=== PATIENT | female | born 2000 | race Caucasian/White ===

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

== ENCOUNTER 2022-02-11 00:54 | Emergency (ER) | payer OTHER, SELFPAY ==
[2022-02-11] VITALS (32 sets, daily range): BP systolic 110–134; BP diastolic 61–109; PULSE 82–115; RESP 11–27; TEMP 36.6; O2SAT 92–100
--- NOTE | ~2022-02-11 | CT_ITS ---
EXAMINATION: CT abdomen pelvis w con DATE: 02/11/2022 03:39 INDICATION: Right lower quadrant abdominal pain. Nausea and vomiting. TECHNIQUE: Computed tomography (CT) of the abdomen and pelvis was performed with 100 mL Omnipaque 350 intravenous contrast. Automated exposure control and iterative reconstruction technique were employe d. The dose-length product was 199.17 mGy-cm. COMPARISON: CT abdomen and pelvis 12/19/2020 FINDINGS: The visualized portions of the lung bases are clear without pneumonia or pleural effusion. The heart size is normal. No pericardial effusion. The liver, gallbladder, spleen, pancreas, adrenal glands, and kidneys are normal. There are no dilated loops of bowel. The appendix is normal. There ar e no pathologically enlarged lymph nodes. There is physiologic fluid in the pelvis. The bones are unr emarkable. IMPRESSION: 1. No specific etiology for the patient's symptoms. Reviewed, dictated and finalized at location B.
[2022-02-11 02:12] LABS: Basophils Percent Auto 0.3 % (0.2-1.2); Eosinophils Absolute Auto 0.2 K/mm3 (0-0.3); Eosinophils Percent Auto 2.6 % (0-4.4); Hematocrit 41.6 % (37.0-47.0); Hemoglobin 14.4 g/dL (12.0-15.0); Immature Granulocyte Absolute 0.02 K/mm3 (0.00-0.031); Immature Granulocyte Percent A 0.3 % (0-0.5); Lymphocytes Absolute Auto 1.38 K/mm3 (0.9-3.2); Lymphocytes Percent Auto 22.3 % (18.3-44.2); Mean Corpuscular HGB Conc 34.6 g/dl (32-36); Mean Corpuscular Hemoglobin 31.9 pg (26-34); Mean Platelet Volume 10.6 fl (7.4-10.4); Monocytes Absolute Auto 0.7 K/mm3 (0.1-0.6); Neutrophils Absolute Auto 3.9 K/mm3 (1.3-6.7); Neutrophils Percent Auto 63.5 % (45.5-73.1); Platelet Count Result 169 k/mm3 (150-375); Red Blood Count 4.52 M/mm3 (4.2-5.4); Red Cell Distribution Width 12.2 % (11.5-14.5); White Blood Count 6.2 K/mm3 (4.5-10.0)
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
[2022-02-11 02:24] LABS: Alanine Aminotransferase 17 U/L (6-35); Alkaline Phosphatase 53 U/L (45-116); Anion Gap 16 mmol/L (8-16); Aspartate Amino Transferase 33 U/L (14-36); Bilirubin,Total 0.6 mg/dL (0.2-1.3); Blood Urea Nitrogen 9 mg/dL (8-21); Calcium 9.6 mg/dL (8.9-10.7); Carbon Dioxide 21 mmol/L (22-30); Chloride 103 mmol/L (98-107); Estimated CRCL calculation 88 ml/min; Estimated Glomerular Filt Rate > 60; Glucose 114 mg/dL (65-110); Lipase 108 U/L (23-300); Potassium 3.5 mmol/L (3.4-5.0); Sodium 140 mmol/L (134-143)
[2022-02-11 02:54] LABS: Appearance Urine Clear (Clear); Bilirubin Urine Negative (Negative); Blood Urine Negative (Negative); Color Urine Yellow (Yellow); Glucose Urine UA Negative (Negative); Ketones Urine 2+ mg/dL (Negative); Leukocyte Esterase Ur Negative LEU/UL (Negative); Nitrate Urine Negative (Negative); Protein Urine Negative (Negative); Specific Grav Ur 1.015 (1.001-1.035); pH Urine 8.5 (5.0-9.0)
[2022-02-11 02:59] LABS: Add Urine Microscopic? YES; Bacteria Urine Trace /hpf; Mucus Urine Rare /lpf; RBC Urine 0-2 /hpf (0-2); Squamous Epithelial Cell Urine Many /hpf (Few); WBC Urine 0-3 /hpf
--- NOTE | 2022-02-11 03:06 | PC.NURSE ---
Pt continues to repeatedly remove BP cuff
--- NOTE | 2022-02-11 03:17 | PC.NURSE ---
Pt called out for medication. RN awiting MD orders and notified pt. MD in room with critical pt at this time.
[2022-02-11] MEDS: SODIUM CHLORIDE 0.9% IV 1,000 ML 999 ML IV CONT (04:02)
[2022-02-11] MEDS: ONDANSETRON INJ 4 MG/2 ML VIAL IV PUSH (04:02)
[2022-02-11] MEDS: FAMOTIDINE 20 MG/2 ML VIAL IV PUSH (04:02)
[2022-02-11] MEDS: diphenhydrAMINE HCl INJ 50 MG/ML VIAL IV PUSH (04:43)
[2022-02-11] MEDS: METOCLOPRAMIDE HCL INJ 10 MG/2 ML VIAL IV PUSH (04:44)
== END 2022-02-11 05:47 | disposition home or self-care (01) ==
PROVIDERS: Emergency Provider Emergency Medicine; PCP Pediatrics
DX: R11.2 Nausea with vomiting, unspecified (principal)
CPT/HCPCS: 36415; 74177; 80053; 81001; 81025; 83690; 85025; 96361; 96374; 96375; 99284; J1200; J2405; J2765; J7030; Q9967

== ENCOUNTER 2022-04-10 11:00 | Emergency (ER) | payer OTHER, SELFPAY ==
[2022-04-10 11:30] VITALS: BP 124/72; PULSE 64; RESP 16; TEMP 37.4; O2SAT 99
--- NOTE | 2022-04-10 12:00 | ED.DENTAL ---
HPI - Dental/Oral General Chief complaint: Dental/Oral Stated complaint: mouth pain Time Seen by Provider: 04/10/22 12:00 Mode of arrival: ambulatory Limitations: no limitations History of Present Illness HPI Narrative: 21-year-old female presents concern for right lower dental pain for several days. She reports she has an decayed tooth in that area. She reports she has a dentist appointment in May. She denies taking any medications for her symptoms. MD Complaint: tooth pain Related Data Allergies Allergy/AdvReac Type Severity Reaction Status Date / Time No Known Allergies Allergy Verified 04/10/22 11:44 Review of Systems Review of Systems: CONSTITUTIONAL: Denies malaise, chills, sweats, or fever. EYES: Denies visual changes ENT: Denies rhinorrhea, congestion, sinus pain, otalgia or sore throat. Reports left lower dental pain CARDIOVASCULAR: Denies chest pain, palpitations RESPIRATORY: Denies cough or dyspnea. SKIN: Denies rash or itching. MUSCULOSKELETAL: Denies myalgia. NEUROLOGIC: Denies numbness, weakness, or headache. All systems reviewed & are unremarkable except as noted in HPI and below PMFSH Social History Social History Gender identity (if verbalized by the patient): Female Comments At time of signature, agree with nursing past medical, surgical, social and family history. There is no relevant family history pertinent to the presenting complaint Exam Narrative: GENERAL: Well-appearing, well-nourished, and in no acute distress. HEAD: Normocephalic, atraumatic. EYES: PERRLA, sclera clear ENT: Nares clear, turbinates pink, no rhinorrhea or epistaxis. Mucous membranes moist. TM pearly douglas with sharp light reflex bilaterally; no tragal tenderness. Oropharynx without erythema or lesions. Tonsils not enlarged and without exudate. Tooth number 31 decayed, cracked without visible or palpable abscess NECK: Supple. No lymphadenopathy. CHEST: No respiratory distress. Speaks in full sentences. HEART: Regular rate and rhythm. SKIN: Warm, dry, no visible rash. NEURO: Alert and oriented x3. PSYCH: Normal mood and affect Course Course Emergency Course: Patient is aware of diagnosis, understands and agrees to treatment plan. Anticipatory guidance given. Patient agrees to follow-up as directed and is aware of reasons to seek care at the emergency department. Portions of this record may have been created with voice recognition software Level of Care: Express Care Visit Vital Signs Vital signs: Vital Signs Temperature 99.4 F 04/10/22 11:30 Pulse Rate 64 04/10/22 11:30 Respiratory Rate 16 04/10/22 11:30 Blood Pressure 124/72 04/10/22 11:30 Pulse Oximetry 99 04/10/22 11:30 Oxygen Delivery Room Air 04/10/22 11:30 Temperature 99.4 F 04/10/22 11:30 Pulse Rate 64 04/10/22 11:30 Respiratory Rate 16 04/10/22 11:30 Blood Pressure 124/72 04/10/22 11:30 Pulse Oximetry 99 04/10/22 11:30 Oxygen Delivery Room Air 04/10/22 11:30 Reviewed. MDM - Dental/Oral MDM Narrative Medical decision making narrative: Patients pain and complaint coupled with physical findings are consistant with dentalgia. There are no focal signs of space occupying lesions that are compromising to the airway; no dysphagia, odynophagia, dysphonia, or dyspnea. No uvular deviation or soft palate edema. Patient is non-toxic appearing. The floor of the mouth is soft with no signs of Maxwell's Angina; no induration below mandible, no neck pain. Patient is without trismus or drooling and able to swallow secretions. Patient is felt appropriate for discharge home with dental follow up. Differential Diagnosis Differential diagnosis: Likely gingival abscess, dental caries, toothache, dental abscess, fracture of tooth and aphthous ulcer Critical Care Time Critical Care Time Critical Care Time: No Discharge Plan Discharge Clinical Impression:
== END 2022-04-10 12:10 | disposition home or self-care (01) ==
PROVIDERS: Emergency Provider Nurse Practitioner
DX: K08.89 Other specified disorders of teeth and supporting structures (principal)
CPT/HCPCS: 99213; G0463

== ENCOUNTER 2022-04-21 18:23 | Emergency (ER) | payer OTHER, SELFPAY ==
--- NOTE | 2022-04-21 18:27 | ED.DENTAL ---
HPI - Dental/Oral General Chief complaint: Dental/Oral Stated complaint: JAW PAIN Time Seen by Provider: 04/21/22 18:33 Mode of arrival: ambulatory Limitations: no limitations History of Present Illness HPI Narrative: 21-year-old female presents concern for continued left lower dental pain/jaw pain. She reports her symptoms improved but did not resolve with the round of Augmentin. She reports cold temperatures make the pain worse. She denies fever, trouble swallowing, headache. MD Complaint: tooth pain Related Data Allergies Allergy/AdvReac Type Severity Reaction Status Date / Time No Known Allergies Allergy Verified 04/10/22 11:44 Review of Systems Review of Systems: CONSTITUTIONAL: Denies malaise, chills, sweats, or fever. EYES: Denies visual changes ENT: Denies rhinorrhea, congestion, sinus pain, otalgia or sore throat. Reports left lower dental pain CARDIOVASCULAR: Denies chest pain, palpitations RESPIRATORY: Denies cough or dyspnea. SKIN: Denies rash or itching. MUSCULOSKELETAL: Denies myalgia. NEUROLOGIC: Denies numbness, weakness, or headache. All systems reviewed & are unremarkable except as noted in HPI and below PMFSH Social History Social History Gender identity (if verbalized by the patient): Female Comments At time of signature, agree with nursing past medical, surgical, social and family history. There is no relevant family history pertinent to the presenting complaint Exam Narrative: GENERAL: Well-appearing, well-nourished, and in no acute distress. HEAD: Normocephalic, atraumatic. EYES: PERRLA, sclera clear ENT: Nares clear, turbinates pink, no rhinorrhea or epistaxis. Mucous membranes moist. TM pearly douglas with sharp light reflex bilaterally; no tragal tenderness. Oropharynx without erythema or lesions. Tonsils not enlarged and without exudate. Missing teeth, caries noted. Tenderness noted when pressing on tooth number 28, no jaw swelling noted NECK: Supple. No lymphadenopathy. CHEST: No respiratory distress. Speaks in full sentences. HEART: Regular rate and rhythm. SKIN: Warm, dry, no visible rash. NEURO: Alert and oriented x3. PSYCH: Normal mood and affect Course Course Emergency Course: Patient was advised that she needs to see her dentist as soon as possible because her pain did not resolve with the 1st round of antibiotics, will try another round of antibiotics and advised patient to try dental wax over the painful tooth. Patient is aware of diagnosis, understands and agrees to treatment plan. Anticipatory guidance given. Patient agrees to follow-up as directed and is aware of reasons to seek care at the emergency department. Portions of this record may have been created with voice recognition software Level of Care: Express Care Visit Vital Signs Vital signs: Reviewed. MDM - Dental/Oral MDM Narrative Medical decision making narrative: Patients pain and complaint coupled with physical findings are consistant with dentalgia. There are no focal signs of space occupying lesions that are compromising to the airway; no dysphagia, odynophagia, dysphonia, or dyspnea. No uvular deviation or soft palate edema. Patient is non-toxic appearing. The floor of the mouth is soft with no signs of Maxwell's Angina; no induration below mandible, no neck pain. Patient is without trismus or drooling and able to swallow secretions. Patient is felt appropriate for discharge home with dental follow up. Differential Diagnosis Differential diagnosis: Likely gingival abscess, dental caries, toothache, dental abscess, fracture of tooth and aphthous ulcer Critical Care Time Critical Care Time Critical Care Time: No Discharge Plan Discharge Clinical Impression: Toothache Patient Disposition: Home, Self-Care Condition: Stable Instructions: Antibiotic Form, Toothache (ED) Additional Instructions: Take antibiotic as directed Rahul
[2022-04-21 18:31] VITALS: BP 114/67; PULSE 74; RESP 16; TEMP 36.7; O2SAT 99
== END 2022-04-21 18:49 | disposition home or self-care (01) ==
PROVIDERS: Emergency Provider Nurse Practitioner; PCP Pediatrics
DX: K08.89 Other specified disorders of teeth and supporting structures (principal)
CPT/HCPCS: 99213; G0463

== ENCOUNTER 2022-05-27 07:42 | Emergency (ER) | payer OTHER, SELFPAY ==
[2022-05-27 07:44] VITALS: BP 136/73; PULSE 88; RESP 14; TEMP 36.4; O2SAT 100
--- NOTE | 2022-05-27 08:00 | ED.DENTAL ---
HPI - Dental/Oral General Chief complaint: Dental/Oral Stated complaint: jaw pain Time Seen by Provider: 05/27/22 07:54 History of Present Illness HPI Narrative: Patient with history of dental problems presents after having worsening of her tooth ache to her right molar, pain does radiate to her jaw, she had been taking ibuprofen antibiotics at in April but stopped taking them because she did not think they were working anymore. She does have a dentist appointment coming up in a week. No fevers or chills. Related Data Allergies Allergy/AdvReac Type Severity Reaction Status Date / Time No Known Allergies Allergy Verified 04/10/22 11:44 Review of Systems Review of Systems: CONST: No fever. HEENT: Toothache GI: No nausea, vomiting PMFSH Past Medical History Medical History (Updated 05/27/22 @ 08:01 by Janna Tom MD) Fracture of tooth Social History Social History Gender identity (if verbalized by the patient): Female Exam Narrative: EXAMINATION OF ORGAN SYSTEMS/BODY AREAS: Constitutional: Vital signs per nursing GENERAL: Holding ice pack to her face but otherwise well-appearing HEAD: Normal with no signs of head trauma, no obvious swelling EYES: EOMI, conjunctiva normal ENT: Fractured tooth right lower molar, no palpable abscess LUNGS: Nonlabored breathing. HEART: [Regular rate and rhythm] EXT: Normal range of motion SKIN: [No rashes or lesions.] NEURO: [Alert and oriented x 3. No gross focal sensory or strength deficits.] PSYCH: Normal affect Course Vital Signs Vital signs: Vital Signs Temperature 97.6 F 05/27/22 07:44 Pulse Rate 88 05/27/22 07:44 Respiratory Rate 14 05/27/22 07:44 Blood Pressure 136/73 05/27/22 07:44 Pulse Oximetry 100 05/27/22 07:44 Oxygen Delivery Room Air 05/27/22 07:44 Temperature 97.6 F 05/27/22 07:44 Pulse Rate 88 05/27/22 07:44 Respiratory Rate 14 05/27/22 07:44 Blood Pressure 136/73 05/27/22 07:44 Pulse Oximetry 100 05/27/22 07:44 Oxygen Delivery Room Air 05/27/22 07:44 MDM - Dental/Oral MDM Narrative Medical decision making narrative: ED COURSE AND MEDICAL DECISION MAKING: Patient with worsening dental pain. She has a fractured tooth on the right lower jaw and no palpable abscess. No systemic signs or symptoms. Analgesics are administered. She is offered a dental block which she declines She already has follow-up in 1 week with her dentist. Patient was given return precautions and discharged home in stable condition. Discharge Plan Discharge Clinical Impression: Fracture of tooth, Dental caries Patient Disposition: Home, Self-Care Condition: Stable Instructions: Antibiotic Form, Toothache (ED) Additional Instructions: Please follow up with the dentist as scheduled and come back sooner for any further issues or worsening symptoms. Take the meds as prescribed. Prescriptions: New amoxicillin 500 mg capsule 500 mg PO Q8H Qty: 21 0RF acetaminophen [Tylenol Extra Strength] 500 mg tablet 1,000 mg PO Q6H PRN (Reason: pain) Qty: 50 0RF ibuprofen 600 mg tablet 600 mg PO TID PRN (Reason: fever or pain) Qty: 30 0RF No Action ibuprofen 800 mg tablet 800 mg PO Q6H PRN (Reason: pain) Qty: 20 0RF Follow-up/Referrals: Charly,MD Priscilla [Primary Care Provider] - Stand Alone Forms: Work/School Release IP
[2022-05-27] MEDS: AMOXICILLIN 500 MG CAPSULE PO (08:22)
[2022-05-27] MEDS: KETOROLAC 30 MG/ML VIAL (*BKC) IM (08:23)
== END 2022-05-27 08:32 | disposition home or self-care (01) ==
PROVIDERS: Emergency Provider Emergency Medicine; PCP Pediatrics
DX: K02.9 Dental caries, unspecified (principal); K03.81 Cracked tooth
CPT/HCPCS: 96372; 99283; A9270; J1885

== ENCOUNTER 2022-05-28 14:55 | Emergency (ER) | payer OTHER, SELFPAY ==
[2022-05-28 15:01] VITALS: BP 119/74; PULSE 90; RESP 16; TEMP 36.6; O2SAT 100
--- NOTE | 2022-05-28 15:54 | ED.DENTAL ---
HPI - Dental/Oral General Chief complaint: Dental/Oral Stated complaint: dental pain Time Seen by Provider: 05/28/22 15:32 History of Present Illness HPI Narrative: Patient is a 21-year-old female here for evaluation of right lower dental pain over the past 5 days. Patient states she was seen in the ED yesterday and prescribed antibiotics, ibuprofen and Tylenol. She took the ibuprofen and Tylenol yesterday with good relief but today she woke up and her pain returned. Has not yet attempted any medicine for her pain yet. She has follow-up with a dentist next week. She denies any trismus, fevers, and is tolerating her secretions. Related Data Allergies Allergy/AdvReac Type Severity Reaction Status Date / Time No Known Allergies Allergy Verified 05/28/22 15:50 Review of Systems Review of Systems: Gen.: Denies fevers or chills Eyes: Denies eye pain or visual change ENT: Reports dental pain Respiratory: Denies shortness of breath or cough CV: Denies chest pain or palpitations GI: Denies abdominal pain nausea, emesis or diarrhea denies burning, urgency, frequency or hematuria Musculoskeletal: Denies back pain or muscle pain Neuro: Denies numbness, tingling, weakness or focal weakness Skin: Denies rash Except as documented, all other systems reviewed and negative PMFSH Past Medical History Medical History Fracture of tooth Social History Social History Gender identity (if verbalized by the patient): Female Exam Narrative: APPEARANCE: Tearful. well-nourished. Head: Normocephalic and atraumatic. EYES: PERRLA/EOMI, conjunctivae clear NOSE: No nasal drainage EARS: External ear normal in appearance THROAT: Patient has a cracked molar on the right lower side. No visible abscess. No trismus. NECK: Supple. No adenopathy, no masses. RESPIRATORY: Airway patent, respirations nonlabored. Clear to auscultation bilaterally, no rales, rhonchi, wheezing. CARDIOVASCULAR: Regular rate and rhythm without murmurs, rubs, or gallops. ABDOMINAL: Normoactive bowel sounds. Soft, nontender, nondistended. No rebound tenderness or guarding. MUSCULOSKELETAL: Extremities are warm and well-perfused. Moves all extremities well. No edema. NEURO: Normal speech. No focal neurologic deficits. SKIN: Skin is warm and dry. No rashes. PSYCHIATRIC: Normal affect/mood.. Course Vital Signs Vital signs: Vital Signs Temperature 97.9 F 05/28/22 15:01 Pulse Rate 90 05/28/22 15:01 Respiratory Rate 16 05/28/22 15:01 Blood Pressure 119/74 05/28/22 15:01 Pulse Oximetry 100 05/28/22 15:01 Temperature 97.9 F 05/28/22 15:01 Pulse Rate 90 05/28/22 15:01 Respiratory Rate 16 05/28/22 15:01 Blood Pressure 119/74 05/28/22 15:01 Pulse Oximetry 100 05/28/22 15:01 MDM - Dental/Oral MDM Narrative Medical decision making narrative: Patient presents for dental pain due to suspected dental amos. Patient not immunosuppressed, afebrile and well appearing with patent airway, have low suspicion for deep space infection or any concern for airway compromise. Based on history, physical, and work up. No evidence of tooth fracture, avulsion, or bleeding socket. No evidence of RPA, [employer], Maxwell?s angina, periapical abscess. Instructed patient to continue to treat pain with ibuprofen/acetaminophen until they see a dentist. She is already on antibiotics. Patient discharged home and will follow up with dentist, has an appointment next week. Discussed return precautions for odontogenic infections and other dental pain emergencies. Discharge Plan Discharge Clinical Impression: Dental caries Patient Disposition: Home, Self-Care Condition: Stable Instructions: Antibiotic Form, Toothache (ED) Additional Instructions: You will need to follow-up with dentist for ultimate management of your symptoms. Please continue your anti
[2022-05-28] MEDS: IBUPROFEN 400 MG TABLET 800 MG PO (16:15)
[2022-05-28] MEDS: ACETAMINOPHEN 500 MG TABLET 1000 MG PO (16:16)
[2022-05-28] MEDS: LIDOCAINE HCL 2% JELLY 5 ML TUBE 1 APPLIC MUCOUS MEM (16:16)
== END 2022-05-28 17:18 | disposition home or self-care (01) ==
PROVIDERS: Emergency Provider Physician Assistant; PCP Pediatrics
DX: K02.9 Dental caries, unspecified (principal)
CPT/HCPCS: 99282; A9270

== ENCOUNTER 2022-07-14 16:58 | Emergency (ER) | payer OTHER, SELFPAY ==
[2022-07-14 17:14] VITALS: BP 125/71; PULSE 81; RESP 16; TEMP 37.3; O2SAT 99
--- NOTE | 2022-07-14 17:32 | ED.DENTAL ---
HPI - Dental/Oral General Chief complaint: Dental/Oral Stated complaint: mouth pain Time Seen by Provider: 07/14/22 17:32 Source: patient Mode of arrival: ambulatory History of Present Illness HPI Narrative: 21-year-old female presented for complaint of right lower dental pain for 2 days. Taking tylenol and ibuprofen without significant relief. Denies swelling or drainage. States tooth has been broken for a while and has had intermittent abscesses to this site for several months. Scheduled with oral surgeon tomorrow. MD Complaint: tooth pain Related Data Allergies Allergy/AdvReac Type Severity Reaction Status Date / Time No Known Allergies Allergy Verified 07/14/22 17:00 Review of Systems Review of Systems: CONSTITUTIONAL: Denies body aches, fever, chills ENT: Denies rhinorrhea, congestion, sore throat, or otalgia. Reports dental pain CARDIOVASCULAR: Denies chest pain, palpitations RESPIRATORY: Denies cough or dyspnea. SKIN: Denies rash, itching, or wounds. MUSCULOSKELETAL: Denies myalgia. NEUROLOGIC: Denies headache, numbness, tingling, or weakness. [facility] Past Medical History Medical History Fracture of tooth Social History Social History Gender identity (if verbalized by the patient): Female Comments At time of signature, I have reviewed and agree with nursing past medical, surgical, social and family history unless otherwise noted. Please see nursing chart for further information. There is no relevant family history pertinent to the presenting complaint Exam Narrative: GENERAL: Appears in pain; no acute distress. HEAD: Normocephalic, atraumatic. EYES: EOMI. No redness or drainage. Conjunctivae normal. ENT: Dental pain location of #31, tooth is broken, mild erythema and swelling to gum; Mucous membranes pink and moist. TMs normal bilaterally. Throat normal. Uvula midline. NECK: Normal AROM. No lymphadenopathy. CHEST: Clear to auscultation. HEART: Regular rate and rhythm. No murmur appreciated. SKIN: Warm, dry, no rash. Normal skin turgor. NEURO: Alert and oriented x3. Course Course Emergency Course: Patient is aware of diagnosis, understands and agrees to treatment plan. Anticipatory guidance given. Patient agrees to follow-up as directed and is aware of reasons to seek care at the emergency department. Portions of this record may have been created with voice recognition software Level of Care: Express Care Visit Vital Signs Vital signs: Vital Signs Temperature 99.2 F 07/14/22 17:14 Pulse Rate 81 07/14/22 17:14 Respiratory Rate 16 07/14/22 17:14 Blood Pressure 125/71 07/14/22 17:14 Pulse Oximetry 99 07/14/22 17:14 Oxygen Delivery Room Air 07/14/22 17:14 Temperature 99.2 F 07/14/22 17:14 Pulse Rate 81 07/14/22 17:14 Respiratory Rate 16 07/14/22 17:14 Blood Pressure 125/71 07/14/22 17:14 Pulse Oximetry 99 07/14/22 17:14 Oxygen Delivery Room Air 07/14/22 17:14 MDM - Dental/Oral MDM Narrative Medical decision making narrative: Patients pain and complaint coupled with physical findings are consistent with dental abscess There are no focal signs of space occupying lesions that are compromising to the airway; No uvular deviation or soft palate edema. The floor of the mouth is soft with no signs of Maxwell's Angina; no induration below mandible, no neck pain. Patient is without trismus or drooling and able to swallow secretions. Patient is non-toxic appearing. Patient is felt appropriate for discharge home with dental follow up. Advised supportive measures and signs/symptoms to go to the ER. Differential Diagnosis Differential diagnosis: Likely gingival abscess, dental caries, toothache, dental abscess, fracture of tooth and aphthous ulcer Lab Data Labs: [facility]CG Bedside Result Negative
== END 2022-07-14 17:57 | disposition home or self-care (01) ==
PROVIDERS: Emergency Provider Nurse Practitioner Family; PCP Pediatrics
DX: K04.7 Periapical abscess without sinus (principal)
CPT/HCPCS: 81025; 99213; G0463

== ENCOUNTER 2023-06-29 14:24 | Emergency (ER) | payer MEDICAID, SELFPAY ==
--- NOTE | 2023-06-29 14:33 | ED.GENADULT ---
HPI - General Adult General Chief complaint: Dental/Oral Stated complaint: Dental Pain Source: patient, RN notes reviewed and old records reviewed Mode of arrival: ambulatory Limitations: no limitations History of Present Illness HPI narrative: 22-year-old female presents to [facility] with complaints of dental pain on right lower side. Patient states has had issues with tooth for a while and has been trying to find an oral surgeon. Patient states swelling started approximately 3 days ago. Related Data Allergies Allergy/AdvReac Type Severity Reaction Status Date / Time No Known Allergies Allergy Verified 07/14/22 17:00 Review of Systems Constitutional: Constitutional: Reports no additional constitutional complaints, Denies body ache(s), Denies chills, Denies fatigue, Denies fever(s) and Denies headache(s) Eyes: Eyes: Reports no additional eye complaints and Denies blurry vision ENT: Reports system reviewed and no additional complaints, except as documented, Reports dental pain, Denies vertigo, Denies dizziness, Denies ear discharge, Denies otalgia, Denies facial pain, Denies headache(s), Denies nasal congestion, Denies nasal discharge, Denies sinus pain, Denies sinus pressure and Denies sore throat Cardiovascular: Cardiovascular: Reports no additional cardiovascular complaints, Denies chest pain, Denies chest pain at rest, Denies rapid heart rate and Denies dyspnea Respiratory: Respiratory: Reports no additional respiratory complaints, Denies chest congestion, Denies cough, Denies pain on inspiration, Denies pain with cough and Denies dyspnea Gastrointestinal: Gastrointestinal: Denies abdominal pain, Denies diarrhea, Denies nausea and Denies vomiting Integumentary/Breasts: Skin/Breast: Denies rash Neurologic: Reports system reviewed and no additional complaints, except as documented, Denies vertigo, Denies dizziness and Denies headache(s) Endocrine: Endocrine: Denies fatigue PMFSH Past Medical History Medical History Fracture of tooth Social History Social History Gender identity (if verbalized by the patient): Female Comments At the time of my signature, I reviewed and agree with the nursing past medical, surgical, social, and family history. There is no relevant family history pertinent to the patient complaint. Exam Const: General: cooperative, healthy appearing, no acute distress and well nourished Nutritional Appearance: well nourished Orientation/consciousness: patient oriented x3 Limitations: no limitations HENMT: Head: normal to inspection and normocephalic Ears: external ears normal, TM's normal bilaterally, mastoids normal and Abnormal EAC present Face/Nose/Sinus: normal facial exam Face and sinus: normal facial exam Mouth: Yes Normal oral and palatal mucosa present, Yes oropharynx normal and Yes moist mucous membranes Teeth and gingiva: gingiva abnormal edematous, diffusely erythematous and tender and poor dentition Teeth image: 1. Throat: tonsils normal, uvula midline and no uvular edema Eyes: General: appearance normal, both eyes and all related structures Sclera: sclerae normal Pupils: Equal, round and reactive pupils present Resp: Effort & Inspection: normal respiratory effort, able to speak in complete sentences, no audible wheezes, no cough, no respiratory distress and no retractions Auscultation: clear to auscultation bilaterally, no crackles, no rales, no rhonchi and no wheezes Cardio: Rate: regular rate Rhythm: regular rhythm Skin: General skin exam: normal color and no rashes or lesions noted Neuro: General: patient oriented x3 Cranial nerves: Yes Equal, round and reactive pupils present Psych: Appearance: grossly normal Mental Status: mental status grossly normal Speech and movement: Normal speech and movement present Affect: normal affect Course Course
[2023-06-29 14:35] VITALS: BP 112/85; PULSE 101; RESP 16; TEMP 37.4; O2SAT 100
== END 2023-06-29 15:00 | disposition home or self-care (01) ==
PROVIDERS: Emergency Provider Registered Nurse; PCP Pediatrics
DX: K04.7 Periapical abscess without sinus (principal)
CPT/HCPCS: 99213; G0463

== ENCOUNTER 2023-08-22 16:26 | Emergency (ER) | payer MEDICAID, SELFPAY ==
[2023-08-22 16:36] VITALS: BP 113/65; PULSE 80; RESP 16; TEMP 36.5
--- NOTE | 2023-08-22 16:41 | ED.DENTAL ---
HPI - Dental/Oral General Chief complaint: Skin/Abscess/Foreign Body Stated complaint: Mouth Infection and Sinus Infection Source: patient, RN notes reviewed and old records reviewed Mode of arrival: ambulatory Limitations: no limitations History of Present Illness HPI Narrative: 23-year-old female presents to [facility] with complaint of right lower dental pain that started in July. Patient states was seen here given Augmentin and symptoms improved but never completely resolved. Patient is not followed up with dentist. Patient states is noting pain going into jaw and cheek Related Data Allergies Allergy/AdvReac Type Severity Reaction Status Date / Time No Known Allergies Allergy Verified 07/14/22 17:00 Review of Systems Constitutional: Constitutional: Reports no additional constitutional complaints, Denies body ache(s), Denies chills, Denies fatigue, Denies fever(s) and Denies headache(s) Eyes: Eyes: Reports no additional eye complaints and Denies blurry vision ENT: Reports system reviewed and no additional complaints, except as documented, Reports dental pain, Denies vertigo, Denies dizziness, Denies ear discharge, Denies otalgia, Denies facial pain, Denies headache(s), Denies nasal congestion, Denies nasal discharge, Reports sinus pain, Denies sinus pressure and Denies sore throat Cardiovascular: Cardiovascular: Reports no additional cardiovascular complaints, Denies chest pain, Denies chest pain at rest, Denies rapid heart rate and Denies dyspnea Respiratory: Respiratory: Reports no additional respiratory complaints, Denies chest congestion, Denies cough, Denies pain on inspiration, Denies pain with cough and Denies dyspnea Gastrointestinal: Gastrointestinal: Denies abdominal pain, Denies diarrhea, Denies nausea and Denies vomiting Integumentary/Breasts: Skin/Breast: Denies rash Neurologic: Reports system reviewed and no additional complaints, except as documented, Denies vertigo, Denies dizziness and Denies headache(s) Endocrine: Endocrine: Denies fatigue PMF Past Medical History Medical History Fracture of tooth Social History Social History Gender identity (if verbalized by the patient): Female Comments At the time of my signature, I reviewed and agree with the nursing past medical, surgical, social, and family history. There is no relevant family history pertinent to the patient complaint. Exam Const: General: cooperative, healthy appearing, no acute distress and well nourished Nutritional Appearance: well nourished Orientation/consciousness: patient oriented x3 Limitations: no limitations HENMT: Head: normal to inspection and normocephalic Ears: external ears normal Face/Nose/Sinus: Normal nasal mucous membranes and turbinates present, normal facial exam and sinus tenderness ( right maxillary) Face and sinus: normal facial exam Mouth: Yes Normal oral and palatal mucosa present, Yes oropharynx normal and Yes moist mucous membranes Teeth and gingiva: caries and gingiva abnormal edematous and diffusely erythematous Teeth image: 1. dental caries with, swelling and erythema and tooth number 30 Throat: tonsils normal, uvula midline and no uvular edema Eyes: General: appearance normal, both eyes and all related structures Sclera: sclerae normal Pupils: Equal, round and reactive pupils present Resp: Effort & Inspection: normal respiratory effort, able to speak in complete sentences, no audible wheezes, no cough, no respiratory distress and no retractions Auscultation: clear to auscultation bilaterally, no crackles, no rales, no rhonchi and no wheezes Cardio: Rate: regular rate Rhythm: regular rhythm Skin: General skin exam: normal color and no rashes or lesions noted Neuro: General: patient oriented x3 Cranial nerves: Yes Equal, round and reactive pupils present Psych: Appear
== END 2023-08-22 16:51 | disposition home or self-care (01) ==
PROVIDERS: Emergency Provider Registered Nurse
DX: K04.7 Periapical abscess without sinus (principal)
CPT/HCPCS: 99213; G0463

== ENCOUNTER 2023-09-10 10:11 | Emergency (ER) | payer OTHER, SELFPAY ==
[2023-09-10 10:25] VITALS: BP 125/68; PULSE 73; RESP 16; TEMP 37.9; O2SAT 100
--- NOTE | 2023-09-10 10:28 | ED.EYEPROB ---
HPI - Eye Problem General Chief complaint: Eye Problems Stated complaint: left eye discharge,red,hurts Time Seen by Provider: 09/10/23 10:30 Source: patient Mode of arrival: ambulatory Limitations: no limitations History of Present Illness HPI Narrative: Veronica is a 23-year-old female patient presenting to the clinic today with complaints of possible left pinkeye. 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 Symptoms started around 2:00 a.m. yesterday with her eye becoming red. She reports she has had some yellowish green discharge and has a gritty sensation in her eye. Denies any injury or foreign body. Denies any URI symptoms. Related Data Allergies Allergy/AdvReac Type Severity Reaction Status Date / Time No Known Allergies Allergy Verified 09/10/23 10:14 Review of Systems Review of Systems: Pertinent positives per HPI. Patient denies any fever, chills, rash, headache, visual changes, dizziness, cough, runny nose, sore throat, shortness of breath, chest pain, palpitations, nausea, vomiting, diarrhea, constipation, abdominal pain, or any urinary issues. [facility] Past Medical History Medical History Fracture of tooth Social History Social History Gender identity (if verbalized by the patient): Female Comments At the time of my signature, I reviewed and agree with the nursing past medical, surgical, social, and family history. There is no relevant family history pertinent to the patient complaint. Exam Narrative: General: Well-developed, well nourished, in no apparent distress Head: Normocephalic, atraumatic Eyes: Pupils equally round and reactive to light bilaterally, EOM intact, right sclera and conjunctive clear, left sclera and conjunctiva injected with yellow mucopurulent discharge, mild lids swelling to the left eye Ears: TMs intact and clear, ear canals clear, no drainage, grossly hearing normal. Nose: Nares patent, no discharge, no inflammation, no sinus tenderness. Mouth: Oropharynx without lesions or masses, good dentition, MMM. Neck: Supple, trachea midline, no enlargement of anterior or posterior cervical nodes, no thyroid masses or goiter palpable. Cardio: Regular rate and rhythm, s1 and s2 normal, no murmur appreciated. Resp: Clear to auscultation bilaterally anteriorly and posteriorly, no rhonchi, rales, wheezing or rubs Course Course Emergency Course: Portions of this record may have been created with voice recognition software. Level of Care: Express Care Visit Vital Signs Vital signs: Vital Signs Temperature 37.9 C H 09/10/23 10:25 Pulse Rate 73 09/10/23 10:25 Respiratory Rate 16 09/10/23 10:25 Blood Pressure 125/68 09/10/23 10:25 Pulse Oximetry 100 09/10/23 10:25 Oxygen Delivery Room Air 09/10/23 10:25 Temperature 37.9 C H 09/10/23 10:25 Pulse Rate 73 09/10/23 10:25 Respiratory Rate 16 09/10/23 10:25 Blood Pressure 125/68 09/10/23 10:25 Pulse Oximetry 100 09/10/23 10:25 Oxygen Delivery Room Air 09/10/23 10:25 Vital signs reviewed MDM - Eye Problem MDM Narrative Medical decision making narrative: At the time of visit patient is resting comfortably on the exam table. Patient appears to be nontoxic. Plan: I suspect patient has bacterial conjunctivitis. Prescription for polymyxin eyedrops was sent to the pharmacy. Supportive measures were discussed with the patient and they voiced understanding discharge instructions and agrees to treatment plan. Return precautions reviewed Differential Diagnosis Differential diagnosis: Likely corneal abrasion, conjunctivitis, acute iritis, hyphema, periorbital cellulitis, subconjunctival hemorrhage, glaucoma, corneal ulcer and ruptured globe Discharge Plan Discharge Clinical Impression: Bacterial conjunctivitis Patient Disposition: Home, Self-Care Condition:
== END 2023-09-10 10:36 | disposition home or self-care (01) ==
PROVIDERS: Emergency Provider Nurse Practitioner Family
DX: H10.9 Unspecified conjunctivitis (principal)
CPT/HCPCS: 99213; G0463

== ENCOUNTER 2023-11-02 08:12 | Emergency (ER) | payer OTHER, SELFPAY ==
[2023-11-02 08:24] VITALS: BP 120/71; PULSE 91; RESP 16; TEMP 36.7; O2SAT 100
--- NOTE | 2023-11-02 08:54 | ED.URI ---
HPI - URI/Sore Throat General Chief Complaint: Upper Respiratory Infection Stated Complaint: throat pain Time Seen by Provider: 11/02/23 08:15 Source: patient Mode of arrival: ambulatory Limitations: no limitations History of Present Illness HPI Narrative: 23-year-old female presents with complaint sore throat for 2 days. Afebrile. Complaining fatigue, no other symptoms. 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 All systems reviewed and negative except as noted above. Related Data Home Medications Medication Instructions Recorded Confirmed No Home Medications 11/02/23 11/02/23 Allergies Allergy/AdvReac Type Severity Reaction Status Date / Time No Known Allergies Allergy Verified 11/02/23 08:22 Review of Systems Review of Systems: CONSTITUTIONAL: Denies fever, chills, or sweats. reports fatigue. EYES: Denies visual changes, redness, or discharge. ENT: Denies rhinorrhea, congestion . Reports sore throat. Denies otalgia. CARDIOVASCULAR: Denies chest pain, palpitations, or edema. RESPIRATORY: Denies cough or dyspnea. GASTROINTESTINAL: Denies abdominal pain, nausea, vomiting, or diarrhea. GENITOURINARY: Denies dysuria or hematuria. SKIN: Denies rash or itching. MUSCULOSKELETAL: Denies back pain, joint pain, or myalgia. NEUROLOGIC: Denies headache, numbness, or weakness. PSYCHIATRIC: Denies anxiety or depression. All other systems reviewed are negative, except as documented in HPI. PMFSH Past Medical History Medical History Fracture of tooth Social History Social History Gender identity (if verbalized by the patient): Female Comments At time of signature, agree with nursing past medical, surgical, social and family history. There is no relevant family history pertinent to the presenting complaint. Exam Narrative: GENERAL: This is a well-nourished, well-developed patient, in no apparent distress. HEAD: normocephalic, atraumatic. EYES: PERRL. Sclera clear/white. Vision is grossly intact. EARS: External ears normal, auditory canals clear and without drainage, TMs normal without perforation. Hearing grossly intact. NOSE: External nose normal with no obvious nasal discharge, nares without redness, no rhinorrhea. THROAT: Mucous membranes moist, To posterior pharynx. No swelling exudates. NECK: Neck supple, non-tender without lymphadenopathy, masses or thyromegaly. CARDIOVASCULAR: Regular rate and rhythm without murmurs, gallops, or rubs. RESPIRATORY: Clear to auscultation. Breath sounds equal bilaterally. No wheezes, rales, or rhonchi. SKIN: warm, Dry, intact with no suspicious lesions or rash, good texture and turgor. NEURO: awake, alert, and oriented to person, place and time. There were no obvious focal neurologic abnormalities. EXTREMITIES: No joint tenderness, effusion, or edema noted. Course Course Level of Care: Express Care Visit Vital Signs Vital signs: Vital Signs Temperature 36.7 C 11/02/23 08:24 Pulse Rate 91 11/02/23 08:24 Respiratory Rate 16 11/02/23 08:24 Blood Pressure 120/71 11/02/23 08:24 Pulse Oximetry 100 11/02/23 08:24 Oxygen Delivery Room Air 11/02/23 08:24 Temperature 36.7 C 11/02/23 08:24 Pulse Rate 91 11/02/23 08:24 Respiratory Rate 16 11/02/23 08:24 Blood Pressure 120/71 11/02/23 08:24 Pulse Oximetry 100 11/02/23 08:24 Oxygen Delivery Room Air 11/02/23 08:24 Reviewed MDM - URI/Sore Throat MDM Narrative Medical decision making narrative: patient is well-appearing. Negative rapid strep. Order culture. Will Wait for culture results prior to antibiotics. Patient agrees to of care. Patient is aware of diagnosis, understands and agrees to treatment plan. Anticipatory guidance given. Patient agr
== END 2023-11-02 08:42 | disposition home or self-care (01) ==
PROVIDERS: Emergency Provider Nurse Practitioner Family; Referring Provider Family Medicine
DX: J02.9 Acute pharyngitis, unspecified (principal)
CPT/HCPCS: 87081; 87880; 99213; G0463

== ENCOUNTER 2023-11-03 08:17 | Emergency (ER) | payer OTHER, SELFPAY ==
[2023-11-03 08:26] VITALS: BP 135/88; PULSE 117; RESP 20; TEMP 36.4; O2SAT 95
--- NOTE | 2023-11-03 08:43 | ED.GENADULT ---
HPI - General Adult General Chief complaint: Upper Respiratory Infection Stated complaint: migraine Source: patient and RN notes reviewed Mode of arrival: ambulatory Limitations: no limitations History of Present Illness HPI narrative: 23 y/o female presented for c/o headache, nausa and vomiting, body aches, sinus congestion, cough, fever up to 102 today. Reports about 5 episodes of emesis today. Denies sob, wheezing. Has not taken anything for symptoms. Pt was seen at this clinic yesterday for reported sore throat, tested negative for strep. Today says the throat pain is not as bad. Related Data Allergies Allergy/AdvReac Type Severity Reaction Status Date / Time No Known Allergies Allergy Verified 11/03/23 08:41 Review of Systems Review of Systems: CONSTITUTIONAL: Endorses malaise, chills, sweats, fever EYES: Denies visual changes, redness, or discharge ENT: Reports rhinorrhea, congestion, sore throat CARDIOVASCULAR: Denies chest pain, palpitations, edema RESPIRATORY: Reports cough, post nasal drainage. Denies dyspnea GASTROINTESTINAL: Denies abdominal pain, reports nausea, vomiting SKIN: Denies rash or itching MUSCULOSKELETAL: Endorses myalgia NEUROLOGIC: Endorses headache PMFSH Past Medical History Medical History Fracture of tooth Social History Social History Gender identity (if verbalized by the patient): Female Exam Narrative: GENERAL: Ill-appearing, nontoxic EYES: PERRLA, conjunctivae clear ENT: Mucous membranes moist. TMs pearly douglas with normal light reflex bilaterally; no tragal tenderness. Oropharynx not erythematous without lesions or exudate, no drooling, no hoarseness, no trismus, uvula midline. No tripod positioning, muffled voice, soft palate or pharyngeal wall bulging NECK: Supple. No lymphadenopathy CHEST: Clear to auscultation, breath sounds equal. HEART: Regular rate and rhythm. No murmur heard. SKIN: Warm, dry, no rash. NEURO: Alert and oriented x3. PSYCH: Normal mood and affect Course Course Emergency Course: Patient is aware of diagnosis, understands and agrees to treatment plan. Anticipatory guidance given. Patient agrees to follow-up as directed and is aware of reasons to seek care at the emergency department. Portions of this record may have been created with voice recognition software Level of Care: Express Care Visit Vital Signs Vital signs: Vital Signs Temperature 97.6 F 11/03/23 08:26 Pulse Rate 117 H 11/03/23 08:26 Respiratory Rate 20 11/03/23 08:26 Blood Pressure 135/88 11/03/23 08:26 Pulse Oximetry 95 11/03/23 08:26 Oxygen Delivery Room Air 11/03/23 08:26 Temperature 97.6 F 11/03/23 08:26 Pulse Rate 117 H 11/03/23 08:26 Respiratory Rate 20 11/03/23 08:26 Blood Pressure 135/88 11/03/23 08:26 Pulse Oximetry 95 11/03/23 08:26 Oxygen Delivery Room Air 11/03/23 08:26 reviewed Medical Decision Making MDM Narrative Medical decision making narrative: Result of covid and flu reviewed with pt. Discussed physical exam findings. Advised supportive measures and signs/symptoms to go to the ER. Pt is appropriate for outpt treatment and f/u. Differential Diagnosis Differential Diagnosis: Influenza, covid, sinusitis, OM, strep pharyngitis, URI Vital Signs Vital Signs: Vital Signs Temperature 97.6 F 11/03/23 08:26 Pulse Rate 117 H 11/03/23 08:26 Respiratory Rate 20 11/03/23 08:26 Blood Pressure 135/88 11/03/23 08:26 Pulse Oximetry 95 11/03/23 08:26 Oxygen Delivery Room Air 11/03/23 08:26 Temperature 97.6 F 11/03/23 08:26 Pulse Rate 117 H 11/03/23 08:26 Respiratory Rate 20 11/03/23 08:26 Blood Pressure 135/88 11/03/23 08:26 Pulse Oximetry 95 11/03/23 08:26 Oxygen Delivery Room Air 11/03/23 08:26 Lab Data Labs: UCG Bedside Result Negative
[2023-11-03] MEDS: ONDANSETRON HCL ODT 4 MG TABLET SUBLINGUAL (09:04)
== END 2023-11-03 09:16 | disposition home or self-care (01) ==
PROVIDERS: Emergency Provider Nurse Practitioner Family; Referring Provider Family Medicine
DX: B34.9 Viral infection, unspecified (principal); Z20.822 Contact with and (suspected) exposure to COVID-19
CPT/HCPCS: 81025; 87426; 87804; 99213; A9270; G0463